=== PATIENT | male | born 1980 | race Hispanic/Latino ===

== ENCOUNTER 2019-12-03 13:59 | Emergency (ER) | payer SELFPAY, OTHER ==
[2019-12-03] MEDS ORDERED: ACETAMINOPHEN 500 MG TAB ONE (14:27)
--- NOTE | 2019-12-03 15:30 | RAD REPORT ---
EXAM DESCRIPTION: RAD - Chest Single View - 12/03/2019 3:11 pm CLINICAL HISTORY: COUGH Chest pain. COMPARISON: No comparisons FINDINGS: Portable technique limits examination quality. Airspace opacity is seen in the right lung base most compatible pneumonia. The heart is normal in siz e. No displaced fractures. IMPRESSION: Right lower lobe pneumonia.
[2019-12-03] MEDS ORDERED: levoFLOXacin 750 MG TAB ONE (16:01)
--- NOTE | 2019-12-03 16:15 | EDPHYS ---
Physician Documentation [facility] Name: Denis Carranza Age: 39 yrs Sex: Male : 1980 Arrival Date: 12/03/2019 Time: 14:02 Bed 20 Private MD: ED Physician Dhaval Caban HPI: 12/02 15:42 This 39 yrs old Male presents to ER via Ambulatory with complaints of Cold rn Symptoms, Back Pain. 15:42 The patient or guardian reports cough, flu symptoms, myalgias. Onset: The rn symptoms/episode began/occurred 3 day(s) ago. Severity of symptoms: At their worst the symptoms were mild, in the emergency department the symptoms are unchanged. Modifying factors: The symptoms are alleviated by nothing, the symptoms are aggravated by nothing. The patient has experienced similar episodes in the past. Reports 3-4 days of fever, cough, muscle aches, fatigue, no travel hx, no known sick contacts, lives at home alone. Denies sob. No hemoptysis. No diarrhea. feels like has the flu.. Historical: - Allergies: 14:18 No Known Allergies; kl - Home Meds: 14:18 None [Active]; kl - PMHx: 14:18 None; kl - Immunization history:: Pneumococcal vaccine is not up to date, Flu vaccine is not up to date. - Social history:: Smoking status: Patient/guardian denies using. - Family history:: not pertinent. - Hospitalizations: : No recent hospitalization is reported. ROS: 15:42 Constitutional: + fever and chills Eyes: Negative for injury, pain, redness, and network intern, Cardiovascular: Negative for chest pain, palpitations, and edema, Respiratory: + cough, negative for sob Abdomen/GI: Negative for abdominal pain, nausea, vomiting, diarrhea, and constipation, MS/Extremity: Negative for injury and deformity, Skin: Negative for injury, rash, and discoloration, Neuro: + headache, no weakness Exam: 15:42 Constitutional: This is a well developed, well nourished patient who is awake, alert, rn and in no acute distress. Ambulatory to room without difficulty or assistance. Head/Face: Normocephalic, atraumatic. Eyes: Pupils equal round and reactive to light, extra-ocular motions intact. Lids and lashes normal. Conjunctiva and sclera are non-icteric and not injected. Cornea within normal limits. Periorbital areas with no swelling, redness, or edema. ENT: Mild pharyngeal erythema, no exudate, no stridor Cardiovascular: Regular rate and rhythm. No pulse deficits. Respiratory: + diminished breath sounds right base, no wheezing, no retractions or tachypnea Skin: Warm, dry MS/ Extremity: Pulses equal, no cyanosis. Neuro: Awake and alert, GCS 15 Vital Signs: 14:14 BP 135 / 81; Pulse 96; Resp 20; Temp 102.9; Pulse Ox 100% on R/A; Weight 85.73 kg; kl Height 5 ft. 9 in. (175.26 cm); Pain 4/10; 16:05 BP 100 / 59; Pulse 76; Resp 20; Temp 100.9(O); Pulse Ox 98% on R/A; Pain 8/10; em 14:14 Body Mass Index 27.91 (85.73 kg, 175.26 cm) kl MDM: 14:41 Patient medically screened. rn 16:11 Differential Diagnosis: Bronchitis Influenza Upper Respiratory Infection Viral Syndrome rn Pneumonia. Data reviewed: vital signs, nurses notes, lab test result(s), radiologic studies, plain films, and as a result, I will discharge patient. Counseling: I had a detailed discussion with the patient and/or guardian regarding: the historical points, exam findings, and any diagnostic results supporting the discharge/admit diagnosis, lab results, radiology results, the need for outpatient follow up, to return to the emergency department if symptoms worsen or persist or if there are any questions or concerns that arise at home. Special discussion: I discussed with the patient/guardian in detail that at this point there is no indication for admission to the hospital. It is understood, however, that if the symptoms persist or worsen the patient needs to return immediately for re-evaluation. ED course: Pt with RLL pneumonia, COVID-19 test sent given young, no comorbidities and has never had pneumonia in past. Will go home, with abx, and quarantine atleast until COVID-19 test results. . 12/02 14:49 Order name: Strep; Complete Time: 16:19 rn 12/02 14:49 Order name: Flu; Complete Time: 15:32 rn 12/02 14:49 Order name: XRAY Chest (1 view); Complete Time: 16:19 rn 12/02 15:32 Order name: Throat Culture EDTN 12/02 15:55 Order name: Misc. Lab Test iw 12/02 15:42 Order name: Misc. Order: COVID-19 swab; Complete Time: 15:43 rn Administered Medications: 14:24 Drug: Tylenol 1000 mg Route: PO; ca1 16:05 Follow up: Response: No adverse reaction; Temperature is decreased em 16:10 Drug: LevaQUIN 750 mg Route: PO; em 16:47 Follow up: Response: No adverse reaction em Disposition: 12/03/19 16:13 Discharged to Home. Impression: Pneumonia, unspecified organism. - Condition is Stable. - Discharge Instructions: Community-Acquired Pneumonia, Adult. - Prescriptions for Levaquin 750 mg Oral Tablet - take 1 tablet by ORAL route once daily for 10 days; 10 tablet. - Medication Reconciliation Form, Thank You Letter, Antibiotic Education, Prescription Opioid Use form. - Follow up: Private Physician; When: As needed; Reason: Recheck today's complaints, Re-evaluation by your physician. - Problem is new. - Symptoms have improved. Signatures: Dispatcher [employer] [facility] Dona Chang RN ELIJAH Dejuan Castro RN RN Dhaval Caban MD MD rn AcMary white RN RN ca1 Corrections: (The following items were deleted from the chart) 16:47 16:13 12/03/2019 16:13 Discharged to Home. Impression: Pneumonia, unspecified organism. em Condition is Stable. Forms are Medication Reconciliation Form, Thank You Letter, Antibiotic Education, Prescription Opioid Use. Follow up: Private Physician; When: As needed; Reason: Recheck today's complaints, Re-evaluation by your physician. Problem is new. Symptoms have improved. rn
--- NOTE | 2019-12-03 16:15 | ER ---
Nurse's Notes [facility] Name: Denis Carranza Age: 39 yrs Sex: Male : 1980 Arrival Date: 12/03/2019 Time: 14:02 Bed 20 Private MD: Diagnosis: Pneumonia, unspecified organism Presentation: 12/02 14:14 Chief complaint: Patient states: fever and aches x 4 days positive sough and sore kl throat. Coronavirus screen: Patient reports a subjective fever or greater than 100.4F, or cough, or shortness of breath, or difficulty breathing. Surgical mask placed on patient. Patient moved to private room, placed in contact and droplet isolation with eye protection until further assessment. Patient denies travel on a cruise ship or to a country the [facility] currently lists as an affected area. Patient denies contact with known and/or suspected case of COVID-19. Ebola Screen: Patient negative for fever greater than or equal to 101.5 degrees Fahrenheit, and additional compatible Ebola Virus Disease symptoms Patient denies exposure to infectious person. Patient denies travel to an Ebola-affected area in the 21 days before illness onset. No symptoms or risks identified at this time. Initial Sepsis Screen: Does the patient meet any 2 criteria? Temp <36.0*C (96.8*F)) or > 38.3*C (100.9*F). HR > 90 bpm. Does the patient have a suspected source of infection? No. Patient's initial sepsis screen is negative. Risk Assessment: Do you want to hurt yourself or someone else? Patient reports no desire to harm self or others. Note mask in place. 14:14 Method Of Arrival: Ambulatory 14:14 Acuity: JO 3 kl Triage Assessment: 14:18 General: Appears uncomfortable, well groomed, well developed, well nourished, Behavior kl is calm, cooperative. Pain: Complains of pain in back / head Pain currently is 4 out of 10 on a pain scale. Musculoskeletal: Circulation, motion, and sensation intact. Range of motion: intact in all extremities. Historical: - Allergies: 14:18 No Known Allergies; kl - Home Meds: 14:18 None [Active]; kl - PMHx: 14:18 None; kl - Immunization history:: Pneumococcal vaccine is not up to date, Flu vaccine is not up to date. - Social history:: Smoking status: Patient/guardian denies using. - Family history:: not pertinent. - Hospitalizations: : No recent hospitalization is reported. Screenin:55 Abuse screen: Denies threats or abuse. Nutritional screening: No deficits noted. em Tuberculosis screening: No symptoms or risk factors identified. Fall Risk None identified. Assessment: 14:55 General: Appears in no apparent distress. comfortable, Behavior is calm, cooperative, em appropriate for age, Reports fever for 12-24 hours, feeling ill for 1-2 days. Pain: Complains of pain in face Pain currently is 4 out of 10 on a pain scale. Pain began 2-3 days ago. Neuro: Level of Consciousness is awake, alert, obeys commands, Oriented to person, place, time, situation, Appropriate for age Reports headache. Cardiovascular: Capillary refill < 3 seconds. Respiratory: Reports cough that is non-productive, Airway is patent Respiratory effort is even, unlabored, Respiratory pattern is regular, symmetrical. GI: Patient currently denies nausea, vomiting. Derm: Skin is intact, is healthy with good turgor, Skin is pink, warm \T\ dry. Musculoskeletal: Capillary refill < 3 seconds, Range of motion: intact in all extremities. 16:05 Reassessment: Patient appears in no apparent distress at this time. swabbed for em covid-19, sent to lab Patient states feeling better. Patient states symptoms have improved. 16:28 Reassessment: Received PUI # [id number], from [facility], called to [facility] in Lab. iw Vital Signs: 14:14 BP 135 / 81; Pulse 96; Resp 20; Temp 102.9; Pulse Ox 100% on R/A; Weight 85.73 kg; kl Height 5 ft. 9 in. (175.26 cm); Pain 4/10; 16:05 BP 100 / 59; Pulse 76; Resp 20; Temp 100.9(O); Pulse Ox 98% on R/A; Pain 8/10; em 14:14 Body Mass Index 27.91 (85.73 kg, 175.26 cm) ED Course: 14:02 Patient arrived in ED. ag5 14:17 Triage completed. 14:40 Dejuan Castro, RN is Primary Nurse. em 14:41 Dhaval Caban MD is Attending Physician. rn 14:55 Arm band placed on. em 14:55 Patient has correct armband on for positive identification. Bed in low position. Call em light in reach. 15:16 XRAY Chest (1 view) In Process Unspecified. EDMS 16:46 No provider procedures requiring assistance completed. Patient did not have IV access em during this emergency room visit. Administered Medications: 14:24 Drug: Tylenol 1000 mg Route: PO; ca1 16:05 Follow up: Response: No adverse reaction; Temperature is decreased em 16:10 Drug: LevaQUIN 750 mg Route: PO; em 16:47 Follow up: Response: No adverse reaction em Outcome: 16:13 Discharge ordered by MD. rn 16:46 Discharged to home ambulatory. em 16:46 Condition: good 16:46 Discharge instructions given to patient, Instructed on discharge instructions, follow up and referral plans. medication usage, Demonstrated understanding of instructions, follow-up care, medications, Prescriptions given X 1. 16:47 Patient left the ED. em Addendum: 12/06/2019 12:57 Addendum: Other Attempted to contact pt regarding COVID-19 swab results but pt has a d m5 voice mail that has not been set up. Will try again on Sunday. 13:00 Addendum: Other pt notified of swab results. Pt advised to stay in isolation until d m5 fever free without medication for 72 hours, continue to monitor results, and to return to the ED if symptoms worsen. Signatures: Dispatcher [employer] Dona Gilliam RN RN kl Markwardt, Deana, RN RN dm5 Dejuan Castro RN RN em Williams, Irene, RN RN iw Nieto, Roman, MD MD rn Acob, Cheryl, RN RN ca1 Jennifer Pina ag5
[2019-12-03 18:40] VITALS: BP 100/59; TEMP 100.9; O2SAT 98
== END 2019-12-03 16:47 | disposition home or self-care (01) ==
LOC: ER 13:59
DX: J18.9 Pneumonia, unspecified organism (principal); Z03.818 Encounter for observation for suspected exposure to other biological agents ruled out
CPT/HCPCS: 71045; 87070; 87081; 87804; 99283; U0001

== ENCOUNTER 2020-08-14 02:43 | Emergency (ER) | payer SELFPAY ==
[2020-08-14] MEDS ORDERED: MORPHINE 4 MG/ML SYR ONE (04:44)
[2020-08-14] MEDS ORDERED: CEFAZOLIN SODIUM 1 GM/VIAL ONE (04:44)
[2020-08-14] MEDS ORDERED: ONDANSETRON 4 MG/2 ML VIAL ONE (04:45)
[2020-08-14] MEDS ORDERED: NA CHLORIDE 0.9% 100 ML ONE (04:45)
[2020-08-14] MEDS ORDERED: NA CHLORIDE 0.9% 1,000 ML ONE (04:45)
[2020-08-14 04:48] LABS: Absolute Lymphocytes (CBC) 1.6 K/uL (0.7-4.9); Basophils % 0.4 % (0-1.3); Hematocrit 41.1 % (39.6-49.0); Lymphocytes % 13.4 % (15.3-44.8); MPV 10.5 fL (7.6-11.3); RBC Red Blood Cell Count 4.65 M/uL (4.33-5.43)
[2020-08-14 04:49] LABS: BUN Blood Urea Nitrogen 15 mg/dL (7-18); Bicarbonate 25 mmol/L (21-32); Glucose Level 115 mg/dL (74-106); Potassium 3.8 mmol/L (3.5-5.1); Sodium Level 142 mmol/L (136-145)
[2020-08-14] MEDS ORDERED: TETANUS & DIPHTHERIA TOX,ADULT 0.5 ML VIAL ONE (04:57)
--- NOTE | 2020-08-14 06:23 | ER ---
Nurse's Notes [facility] Name: Denis Carranza Age: 40 yrs Sex: Male : 1980 Arrival Date: 08/14/2020 Time: 02:44 Bed 6 Private MD: Diagnosis: Tenosynovitis left index finger Presentation: 08/14 03:10 Chief complaint: Patient states: PATIENT CUT HIS HAND WHILE DOING WORK YESTERDAY. rv TONIGHT IT STARTED SWELLING. PAIN 06/19. Coronavirus screen: Client denies travel out of the [place] in the last 14 days. Ebola Screen: No symptoms or risks identified at this time. Initial Sepsis Screen: Does the patient meet any 2 criteria? No. Patient's initial sepsis screen is negative. Does the patient have a suspected source of infection? No. Patient's initial sepsis screen is negative. Risk Assessment: Do you want to hurt yourself or someone else? Patient reports no desire to harm self or others. Onset of symptoms was August 13, 2020 at 19:00. 03:10 Method Of Arrival: Ambulatory rv 03:10 Acuity: JO 3 rv Triage Assessment: 03:13 General: Appears uncomfortable, Behavior is calm, cooperative. Pain: Complains of pain rv in palmar aspect of distal phalanx of left index finger, palmar aspect of middle phalanx of left index finger and palmar aspect of proximal phalanx of left index finger Pain currently is 10 out of 10 on a pain scale. EENT: No signs and/or symptoms were reported regarding the EENT system. Neuro: Level of Consciousness is awake, alert, obeys commands, Oriented to person, place, time, situation. Cardiovascular: Patient's skin is warm and dry. Respiratory: Airway is patent Respiratory effort is even, unlabored. Derm: Skin is intact. Musculoskeletal: Swelling present in palmar aspect of distal phalanx of left index finger, palmar aspect of middle phalanx of left index finger and palmar aspect of proximal phalanx of left index finger. Injury Description: NO TRAUMA. Historical: - Allergies: 03:13 No Known Allergies; rv - Home Meds: 03:13 None [Active]; rv - PMHx: 03:13 None; rv - PSHx: 03:13 None; rv - Immunization history:: Adult Immunizations up to date, Last tetanus immunization: unknown. - Social history:: Smoking status: Patient denies any tobacco usage or history of. Screenin:09 Abuse screen: Denies threats or abuse. Denies injuries from another. Abuse screen: rv Denies threats or abuse. Nutritional screening: No deficits noted. Tuberculosis screening: No symptoms or risk factors identified. Fall Risk None identified. Assessment: 05:47 Reassessment: spoke with [facility] center coordinator, initiated pt transfer sg per order. awaiting a call back at this time from [facility], pt updated on POC and stated understanding. 06:08 General: Appears. rv Vital Signs: 03:10 BP 114 / 73; Pulse 76; Resp 16; Temp 98.2; Pulse Ox 97% ; Weight 86.18 kg; Height 5 ft. rv 9 in. (175.26 cm); Pain 10/10; 06:09 BP 105 / 69; Pulse 68; Resp 16; Pulse Ox 96% on R/A; rv 03:10 Body Mass Index 28.06 (86.18 kg, 175.26 cm) rv ED Course: 02:44 Patient arrived in ED. cl3 02:51 Wilbert Sparks, ELIJAH is Primary Nurse. rv 03:12 Triage completed. rv 03:15 Arm band placed on right wrist. Patient placed in the treatment room, on a stretcher, rv Patient notified of wait time. 03:35 Dwight Rivera MD is Attending Physician. pkl 04:13 Hand Left 3 View XRAY In Process Unspecified. EDMS 04:30 No provider procedures requiring assistance completed. Inserted saline lock: 20 gauge rv in right antecubital area, using aseptic technique. 05:26 initiated a transfer with Marisol Hess from [facility] transfer center. mw2 06:04 administrative approval given by Marisol Hess/ patient has been accepted to [address]/ Dr. Santos has accepted the patient in transfer/ report to be called to [phone]. 06:09 Patient has correct armband on for positive identification. Pulse ox on. NIBP on. rv Administered Medications: 04:40 Drug: NS 0.9% 1000 ml Route: IV; Rate: 125 ml/hr; Site: right antecubital; rv 04:41 Drug: Ancef 2 grams Route: IVPB; Infused Over: 30 mins; Site: right antecubital; rv 06:08 Follow up: IV Status: Completed infusion rv 04:41 Drug: morphine 4 mg Route: IVP; Site: right antecubital; rv 06:08 Follow up: Response: No adverse reaction; Marked relief of symptoms; RASS: Drowsy (-1) rv 04:41 Drug: Zofran (Ondansetron) 4 mg Route: IVP; Site: right antecubital; rv 06:08 Follow up: Response: No adverse reaction rv 04:47 Drug: Tetanus-Diphtheria Toxoid Adult 0.5 ml {Ski Top Trimmer: [employer]. Exp: rv 12/30/2021. Lot #: [id number]. } Route: IM; Site: right deltoid; 06:08 Follow up: Response: No adverse reaction rv Outcome: 06:21 Discharge ordered by MD. pkl 06:24 ER care complete, transfer ordered by MD. pkl 07:27 Patient left the ED. sv Signatures: Dispatcher [employer] Shasha Matos RN RN sv Gay, Steven, RN RN sg Lam, Pin, MD MD pkKishan Quinn mw2 Wilbert Sparks RN RN rv Lewis, Charde cl3 Corrections: (The following items were deleted from the chart) 04:09 03:10 Acuity: JO 5 rv rv
--- NOTE | 2020-08-14 06:23 | EDPHYS ---
Physician Documentation [facility] Name: Denis Carranza Age: 40 yrs Sex: Male : 1980 Arrival Date: 08/14/2020 Time: 02:44 Bed 6 Private MD: ED Physician Dwight Rivera HPI: 08/14 04:00 This 40 yrs old Male presents to ER via Ambulatory with complaints of Hand pkl Swelling, Hand Injury. 04:00 The patient or guardian reports injury, pain, swelling. The complaints affect the left pkl index finger. Context: resulted from Patient sustained a puncture wound on the volar aspect of middle phalanx left index finger yesterday. Now complained of severe pain and swelling left index finger. Associated signs and symptoms: The patient has no apparent associated signs or symptoms. Historical: - Allergies: 03:13 No Known Allergies; rv - Home Meds: 03:13 None [Active]; rv - PMHx: 03:13 None; rv - PSHx: 03:13 None; rv - Immunization history:: Adult Immunizations up to date, Last tetanus immunization: unknown. - Social history:: Smoking status: Patient denies any tobacco usage or history of. ROS: 04:00 Eyes: Negative for injury, pain, redness, and discharge, ENT: Negative for injury, pkl pain, and discharge, Neck: Negative for injury, pain, and swelling, Cardiovascular: Negative for chest pain, palpitations, and edema, Respiratory: Negative for shortness of breath, cough, wheezing, and pleuritic chest pain, Abdomen/GI: Negative for abdominal pain, nausea, vomiting, diarrhea, and constipation, Back: Negative for injury and pain, : Negative for injury, bleeding, discharge, and swelling. 04:00 MS/extremity: Positive for pain, swelling, warmth, of the left index finger. 04:00 Skin: Negative for cellulitis, diaphoresis, ecchymosis, erythema, laceration(s), rash, swelling, . Exam: 04:00 Head/Face: Normocephalic, atraumatic. Eyes: Pupils equal round and reactive to light, pkl extra-ocular motions intact. Lids and lashes normal. Conjunctiva and sclera are non-icteric and not injected. Cornea within normal limits. Periorbital areas with no swelling, redness, or edema. ENT: Nares patent. No nasal discharge, no septal abnormalities noted. Tympanic membranes are normal and external auditory canals are clear. Oropharynx with no redness, swelling, or masses, exudates, or evidence of obstruction, uvula midline. Mucous membranes moist. Neck: Trachea midline, no thyromegaly or masses palpated, and no cervical lymphadenopathy. Supple, full range of motion without nuchal rigidity, or vertebral point tenderness. No Meningismus. Chest/axilla: Normal chest wall appearance and motion. Nontender with no deformity. No lesions are appreciated. Cardiovascular: Regular rate and rhythm with a normal S1 and S2. No gallops, murmurs, or rubs. Normal PMI, no JVD. No pulse deficits. Respiratory: Lungs have equal breath sounds bilaterally, clear to auscultation and percussion. No rales, rhonchi or wheezes noted. No increased work of breathing, no retractions or nasal flaring. Abdomen/GI: Soft, non-tender, with normal bowel sounds. No distension or tympany. No guarding or rebound. No evidence of tenderness throughout. Back: No spinal tenderness. No costovertebral tenderness. Full range of motion. Skin: Warm, dry with normal turgor. Normal color with no rashes, no lesions, and no evidence of cellulitis. Neuro: Awake and alert, GCS 15, oriented to person, place, time, and situation. Cranial nerves II-XII grossly intact. Motor strength 5/5 in all extremities. Sensory grossly intact. Cerebellar exam normal. Normal gait. 04:00 Skin: cellulitis, that is moderate. 04:00 Neuro: Orientation: is normal, Mentation: is normal, Cranial nerves: grossly normal, Motor: is normal. Vital Signs: 03:10 BP 114 / 73; Pulse 76; Resp 16; Temp 98.2; Pulse Ox 97% ; Weight 86.18 kg; Height 5 ft. rv 9 in. (175.26 cm); Pain 10/10; 06:09 BP 105 / 69; Pulse 68; Resp 16; Pulse Ox 96% on R/A; rv 03:10 Body Mass Index 28.06 (86.18 kg, 175.26 cm) rv MDM: 03:35 Patient medically screened. pkl 06:19 Data reviewed: vital signs, nurses notes. ED course: Talked to Dr. Santos, transfer to [facility]. 08/14 03:41 Order name: CBC with Diff; Complete Time: 05:07 [facility] 08/14 03:41 Order name: Chem 7; Complete Time: 05:07 [facility] 08/14 03:41 Order name: Hand Left 3 View XRAY [facility] Administered Medications: 04:40 Drug: NS 0.9% 1000 ml Route: IV; Rate: 125 ml/hr; Site: right antecubital; rv 04:41 Drug: Ancef 2 grams Route: IVPB; Infused Over: 30 mins; Site: right antecubital; rv 06:08 Follow up: IV Status: Completed infusion rv 04:41 Drug: morphine 4 mg Route: IVP; Site: right antecubital; rv 06:08 Follow up: Response: No adverse reaction; Marked relief of symptoms; RASS: Drowsy (-1) rv 04:41 Drug: Zofran (Ondansetron) 4 mg Route: IVP; Site: right antecubital; rv 06:08 Follow up: Response: No adverse reaction rv 04:47 Drug: Tetanus-Diphtheria Toxoid Adult 0.5 ml {[employer]: [employer]. Exp: rv 12/30/2021. Lot #: [id number]. } Route: IM; Site: right deltoid; 06:08 Follow up: Response: No adverse reaction rv Disposition: 08/14/20 06:24 Transfer ordered to [facility]. Diagnosis is Tenosynovitis left index finger. - Reason for transfer: Higher level of care. - Accepting physician is Dr. Santos. - Condition is Stable. - Problem is new. - Symptoms have improved. Signatures: Dispatcher [employer] Shasha Matos RN RN Dwight Goddard MD MD l Wilbert Sparks RN RN rv Corrections: (The following items were deleted from the chart) 06:23 06:21 08/14/2020 06:21 Discharged to Home. Impression: Tenosynovitis left index finger. [facility] Condition is Stable. Forms are Medication Reconciliation Form, Thank You Letter, Antibiotic Education, Prescription Opioid Use. Follow up: Private Physician; When: 1 week; Reason: Wound Recheck, Staple/Suture removal, Re-evaluation by your physician. pkl 07:27 06:24 08/14/2020 06:24 Transfer ordered to [facility]. Diagnosis is Tenosynovitis left sv index finger. Reason for transfer: Higher level of care. Accepting physician is Dr. Santos. Condition is Stable. Problem is new. Symptoms have improved. pkl
--- NOTE | 2020-08-14 08:29 | RAD REPORT ---
EXAM DESCRIPTION: RAD -Hand Left 3 View - 08/14/2020 4:14 am CLINICAL HISTORY: Left hand pain status post injury FINDINGS: No fracture or dislocation is seen.
[2020-08-19 01:12] VITALS: TEMP 98.2
[2020-08-19 01:14] VITALS: BP 105/69; O2SAT 96
== END 2020-08-14 07:27 | disposition short-term general hospital (02) ==
LOC: ER 02:43
DX: M65.9 Synovitis and tenosynovitis, unspecified (principal); Z23 Encounter for immunization
CPT/HCPCS: 36415; 80048; 85025; 90471; 90714; 96365; 96375; 99284; J0690; J2405; J7030